=== PATIENT | female | born 1955 | race Caucasian/White ===

== ENCOUNTER 2018-05-14 22:17 | Observation (INO) | payer OTHER ==
--- NOTE | 2018-05-14 23:09 | ERPHSYRPT ---
- History of Present Illness Time Seen by Provider: 05/14/18 23:07 Source: patient, family Exam Limitations: no limitations Patient Subjective Stated Complaint: pt states she had diarrhea this evening and there was some blood in the stool Triage Nursing Assessment: pt anxious, expresses concern regarding stool, skin warm and dry, skin pale but pink color to her cheeks, no visible hemorrhoids present, bottom appears red Physician History: 62-year-old white female with history of high blood pressure, diabetes, asthma, anemia, anxiety. She arrives with complaint that she drank a lot of tomato juice this afternoon and then she started having diarrhea that she states she noticed blood in her rectum. She states she has pain in the rectal area she denies any abdominal pain she has not been vomiting she has no fevers. Past medical history includes diabetes type 2 asthma, anemia, high blood pressure, anxiety. Past surgical history includes right toes amputated. Social history patient denies tobacco alcohol or illicit drug use. Timing/Duration: today Severity: moderate Modifying Factors: Improves With: nothing Associated Symptoms: other (diarrhea and blood in her stools), No nausea, No vomiting, No abdominal pain, No shortness of breath, No heartburn, No diaphoresis, No cough, No chills, No chest pain, No fever, No headaches, No loss of appetite, No rash, No syncope, No seizure, No weakness Allergies/Adverse Reactions: Penicillins Allergy (Verified 05/14/18 22:46) Home Medications: Alprazolam 0.25 mg [xanAX 0.25 MG] 0.25 mg PO DAILY PRN 05/14/18 [History] Amlodipine Besylate 10 mg [Norvasc 10 MG] 10 mg PO DAILY 05/14/18 [History] Aspirin EC 81 mg [Ecotrin 81 mg] 81 mg PO DAILY 05/14/18 [History] Carvedilol 6.25 mg [Coreg 6.25 MG] 6.25 mg PO BID 05/14/18 [History] Enalapril Maleate 20 mg PO BID 05/14/18 [History] Hydrochlorothiazide 12.5 mg PO DAILY 05/14/18 [History] Metformin HCl 500 mg [Glucophage 500 MG] 500 mg PO BID 05/14/18 [History] Pravastatin Sodium 20 mg PO DAILY 05/14/18 [History] - Review of Systems Constitutional: No Fever, No Chills Eyes: No Symptoms Ears, Nose, & Throat: No Symptoms Respiratory: No Cough, No Dyspnea Cardiac: No Chest Pain, No Edema, No Syncope Abdominal/Gastrointestinal: Diarrhea, Hematochezia, No Abdominal Pain, No Nausea , No Vomiting, No Hematemesis, No Melena, No Dysphagia, No Appetite Changes Genitourinary Symptoms: No Dysuria Musculoskeletal: No Back Pain, No Neck Pain Skin: No Rash Neurological: No Dizziness, No Focal Weakness, No Sensory Changes Psychological: No Symptoms Endocrine: No Symptoms All Other Systems: Reviewed and Negative - Past Medical History Pertinent Past Medical History: Yes Cardiac History: High Cholesterol, Hypertension, Other Respiratory History: Asthma Endocrine Medical History: Diabetes Type II Other Medical History: anemic - Past Surgical History Past Surgical History: Yes Musculoskeletal: Amputation Other Surgical History: toes removed on right foot - Social History Smoking Status: Never smoker Exposure to second hand smoke: No Drug Use: none - Female History Hx Now: No - Nursing Vital Signs Nursing Vital Signs: Initial Vital Signs Temperature 97.9 F 05/14/18 22:33 Pulse Rate 83 05/14/18 22:33 Respiratory Rate 18 05/14/18 22:33 Blood Pressure 153/65 05/14/18 22:33 O2 Sat by Pulse Oximetry 99 05/14/18 22:33 Pain Scale Pain Intensity 4 - Physical Exam General Appearance: no apparent distress, alert Eye Exam: PERRL/EOMI, eyes nml inspection Ears, Nose, Throat Exam: normal ENT inspection, TMs normal, pharynx normal, moist mucous membranes Neck Exam: normal inspection, non-tender, supple, full range of motion Respiratory Exam: normal breath sounds, lungs clear, No respiratory distress Cardiovascular Exam: regular rate/rhythm, normal heart sounds, normal peripheral pulses Gastrointestinal/Abdomen Exam: soft, normal bowel sounds, No tenderness, No mass Back Exam: normal inspection, normal range of motion, No CVA tenderness, No vertebral tenderness Extremity Exam: normal inspection, normal range of motion, pelvis stable Neurologic Exam: alert, oriented x 3, cooperative, 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, normal mood/affect, nml cerebellar function, nml station & gait, sensation nml, No motor deficits Skin Exam: normal color, warm, dry, No rash SpO2 Interpretation: normal (99%) SpO2: 99 Oxygen Delivery: Room Air - Course Nursing assessment & vital signs reviewed: Yes Ordered Tests: Active Orders 24 hr Category Date Time Status IV Insertion STAT Care 05/14/18 23:05 Active IV Insertion-2nd Peripheral STAT Care 05/15/18 00:08 Active Orthostatic Vital Signs STAT Care 05/14/18 23:06 Active CBC W DIFF Stat Lab 05/14/18 23:17 Completed CMP Stat Lab 05/14/18 23:17 Completed Occult Blood,Stool Other Stat Lab 05/14/18 00:05 Completed PROTIME WITH INR Stat Lab 05/14/18 23:17 Completed PTT Stat Lab 05/14/18 23:17 Completed Medication Summary Generic Name Dose Route Start Last Admin Trade Name Freq PRN Reason Stop Dose Admin Sodium Chloride 1,000 mls @ 100 mls/hr 05/15/18 00:15 05/15/18 00:31 Sodium Chloride 0.9% 1000 Ml IV 06/14/18 00:14 100 mls/hr .Q10H KESHAV Administration Pantoprazole Sodium 40 mg 05/15/18 00:33 Protonix 40 Mg Iv IV 05/15/18 00:34 STAT ONE Lab/Rad Data: Laboratory Result Diagrams 05/14/18 23:17 05/14/18 23:17 Laboratory Results 05/14/18 05/14/18 05/14/18 Range/Units 23:17 23:17 23:17 WBC 13.4 H (4.0-10.5) K/mm3 RBC 3.33 L (4.1-5.4) M/mm3 Hgb 10.1 L (12.0-16.0) gm/dl Hct 27.9 L (35-47) % MCV 83.8 (78-100) fl MCH 30.3 (26-32) pg MCHC 36.2 H (32-36) g/dl RDW 12.1 (11.5-14.0) % Plt Count 229 (150-450) K/mm3 MPV 9.5 (6-9.5) fl Gran % 83.2 H (36.0-66.0) % Eos # (Auto) 0.13 (0-0.5) Absolute Lymphs (auto) 1.11 (1.0-4.6) Absolute Monos (auto) 0.99 (0.0-1.3) Lymphocytes % 8.3 L (24.0-44.0) % Monocytes % 7.4 (0.0-12.0) % Eosinophils % 1.0 (0.00-5.0) % Basophils % 0.1 (0.0-0.4) % Absolute Granulocytes 11.17 H (1.4-6.9) Basophils # 0.02 (0-0.4) PT 10.7 (9.95-12.35) SECONDS INR 0.92 (0.8-3.0) APTT 29.0 (25.3-37.0) SECONDS Sodium 117 L* (137-145) mmol/L Potassium 3.2 L (3.5-5.1) mmol/L Chloride 80 L (98-107) mmol/L Carbon Dioxide 25 (22-30) mmol/L Anion Gap 15.5 H (5-15) MEQ/L BUN 27 H (7-17) mg/dL Creatinine 1.27 H (0.52-1.04) mg/dL Estimated GFR 45.2 ML/MIN Glucose 219 H (74-106) mg/dL Calcium 9.6 (8.4-10.2) mg/dL Total Bilirubin 0.40 (0.2-1.3) mg/dL AST 33 (14-36) U/L ALT 24 (0-35) U/L Alkaline Phosphatase 128 H (38-126) U/L Serum Total Protein 7.9 (6.3-8.2) g/dL Albumin 4.6 (3.5-5.0) g/dL Stool Occult Blood (Negative) 05/14/18 Range/Units 00:05 WBC (4.0-10.5) K/mm3 RBC (4.1-5.4) M/mm3 Hgb (12.0-16.0) gm/dl Hct (35-47) % MCV (78-100) fl MCH (26-32) pg MCHC (32-36) g/dl RDW (11.5-14.0) % Plt Count (150-450) K/mm3 MPV (6-9.5) fl Gran % (36.0-66.0) % Eos # (Auto) (0-0.5) Absolute Lymphs (auto) (1.0-4.6) Absolute Monos (auto) (0.0-1.3) Lymphocytes % (24.0-44.0) % Monocytes % (0.0-12.0) % Eosinophils % (0.00-5.0) % Basophils % (0.0-0.4) % Absolute Granulocytes (1.4-6.9) Basophils # (0-0.4) PT (9.95-12.35) SECONDS INR (0.8-3.0) APTT (25.3-37.0) SECONDS Sodium (137-145) mmol/L Potassium (3.5-5.1) mmol/L Chloride (98-107) mmol/L Carbon Dioxide (22-30) mmol/L Anion Gap (5-15) MEQ/L BUN (7-17) mg/dL Creatinine (0.52-1.04) mg/dL Estimated GFR ML/MIN Glucose (74-106) mg/dL Calcium (8.4-10.2) mg/dL Total Bilirubin (0.2-1.3) mg/dL AST (14-36) U/L ALT (0-35) U/L Alkaline Phosphatase (38-126) U/L Serum Total Protein (6.3-8.2) g/dL Albumin (3.5-5.0) g/dL Stool Occult Blood POSITIVE (Negative) - Progress Progress: improved Progress Note: 05/15/18 00:33 62-year-old white female with history of diabetes arthritis anemia anxiety high blood pressure She arrives with complaint of blood in her stool since this evening she states she drank a bunch of tomato juice she began to have rectal bleeding later this afternoon. She denies any abdominal pain. She does have blood with rectal examination. She has no vomiting. Patient's orthostatic vital signs are stable hemoglobin is 10.1 hematocrit is 27.9 platelets 229 Patient was noted to have a low sodium of 117 a low potassium of 3.2 and 9 gap was 15.5 BUN and creatinine are 27 1.27 I have started the patient on IV normal saline 100 mL per hour we'll change this IV normal saline with 20 mEq of potassium chloride at 100 milliliters per hour, will place patient on telemetry. Will give patient Protonix 40 mg IV. Plan to place on observation with repeat CBC CMP in the morning. Impression 1 rectal bleeding. 2 hyponatremia. 3 hypokalemia. . - Departure Time of Disposition: 00:35 Departure Disposition: Observation Clinical Impression: Rectal bleeding, Hyponatremia, Hypokalemia Condition: Fair Critical Care Time: No Referrals: CALDERON MORENO MD [Primary Care Provider] -
[2018-05-14 23:21] LABS: BASOPHIL % 0.1 % (0.0-0.4); Basophil (Absolute #) 0.02 (0-0.4); Eosinophil (Absolute #) 0.13 (0-0.5); Granulocyte Absolute (ANC) 11.17 (1.4-6.9); Granulocytes % 83.2 % (36.0-66.0); Hematocrit 27.9 % (35-47); Hemoglobin 10.1 gm/dl (12.0-16.0); Lymphocyte (Absolute #) 1.11 (1.0-4.6); Lymphocytes % 8.3 % (24.0-44.0); Mean Cell Volume 83.8 fl (78-100); Mean Corpuscular Hemoglobin 30.3 pg (26-32); Mean Corpuscular Hgb Concent. 36.2 g/dl (32-36); Mean Platelet Volume 9.5 fl (6-9.5); Monocyte (Absolute #) 0.99 (0.0-1.3); Monocytes % 7.4 % (0.0-12.0); Platelet Count 229 K/mm3 (150-450); Red Blood Count 3.33 M/mm3 (4.1-5.4); Red Cell Distribution Width 12.1 % (11.5-14.0); White Blood Count 13.4 K/mm3 (4.0-10.5)
[2018-05-14 23:37] LABS: INR 0.92 (0.8-3.0)
[2018-05-14 23:38] LABS: ALBUMIN 4.6 g/dL (3.5-5.0); ANION GAP 15.5 MEQ/L (5-15); BILIRUBIN,TOTAL 0.4 mg/dL (0.2-1.3); Calcium 9.6 mg/dL (8.4-10.2); Creatinine 1 1.27 mg/dL (0.52-1.04); Potassium 3.2 mmol/L (3.5-5.1); Total Protein 7.9 g/dL (6.3-8.2)
[2018-05-15] MEDS ORDERED: Sodium Chloride 0.9% 1000 ML 1,000 ML IV SCH (00:15)
[2018-05-15] MEDS ORDERED: Sodium Chloride 0.9% 1000 ML 1,000 ML ONE (00:22)
[2018-05-15] MEDS ORDERED: PROTONIX 40 MG IV IV ONE ×2 (00:33→00:36)
[2018-05-15] MEDS ORDERED: DIPRIVAN 200 MG/20 ML IV ONE (01:05)
[2018-05-15] MEDS ORDERED: Ketamine HCl 50 MG/ML IJ ONE (01:05)
[2018-05-15 01:06] LABS: ABO TYPING O; Antibody Screen NEGATIVE (NEGATIVE); RH TYPING POSITIVE
[2018-05-15] MEDS ORDERED: NovoLOG Insulin SQ PRN (01:08)
[2018-05-15] MEDS ORDERED: Sodium Chloride 0.9% W/ 20 mEq KCl/LITER 1,000 ML IV SCH (01:08)
[2018-05-15] MEDS: Sodium Chloride 0.9% W/ 20 mEq KCl/LITER 1,000 ML IV SCH ×2 (03:41→13:27)
[2018-05-15 06:09] LABS: BASOPHIL % 0.1 % (0.0-0.4); Basophil (Absolute #) 0.01 (0-0.4); Eosinophil % 1.1 % (0.00-5.0); Eosinophil (Absolute #) 0.12 (0-0.5); Granulocyte Absolute (ANC) 8.22 (1.4-6.9); Granulocytes % 78.6 % (36.0-66.0); Hemoglobin 9.3 gm/dl (12.0-16.0); Lymphocyte (Absolute #) 1.17 (1.0-4.6); Lymphocytes % 11.2 % (24.0-44.0); Mean Cell Volume 84.4 fl (78-100); Mean Corpuscular Hgb Concent. 35.8 g/dl (32-36); Mean Platelet Volume 9.9 fl (6-9.5); Monocyte (Absolute #) 0.94 (0.0-1.3); Platelet Count 204 K/mm3 (150-450); Red Blood Count 3.08 M/mm3 (4.1-5.4); White Blood Count 10.5 K/mm3 (4.0-10.5)
[2018-05-15 06:26] LABS: ALBUMIN 4.1 g/dL (3.5-5.0); ANION GAP 12.7 MEQ/L (5-15); BILIRUBIN,TOTAL 0.4 mg/dL (0.2-1.3); Calcium 9.3 mg/dL (8.4-10.2); Creatinine 1 1.16 mg/dL (0.52-1.04); Potassium 3.5 mmol/L (3.5-5.1)
[2018-05-15 06:29] LABS: Mean Corpuscular Hemoglobin 30.1 pg (26-32)
[2018-05-15] MEDS: PROTONIX 40 MG IV IV SCH (09:50)
[2018-05-15] MEDS ORDERED: NON-FORMULARY ITEM (Pravastatin Sodium [Pravastatin Sodium] 20 MG) PO SCH (10:00)
[2018-05-15] MEDS ORDERED: Glucophage 500 MG PO SCH (10:00)
[2018-05-15] MEDS ORDERED: ENALAPRIL MALEATE 20 MG PO SCH (10:00)
[2018-05-15] MEDS: hydroDIURIL 25 MG PO SCH (10:35)
[2018-05-15] MEDS: Coreg 6.25 MG PO SCH ×2 (10:36→22:10)
[2018-05-15] MEDS: NORVASC 5 MG PO SCH (10:36)
[2018-05-15] MEDS: Bactroban OINTMENT TOP SCH ×2 (10:37→22:09)
[2018-05-15] MEDS: HOLD METFORMIN PRODUCTS FOR 48 HOURS MC SCH (16:28)
[2018-05-15] MEDS: FLAGYL 500 MG IVPB 500 MG/100 ML BAG IV SCH ×2 (16:32→22:10)
[2018-05-15] MEDS: Levofloxacin 500MG/100ML D5W 500 MG/100 ML BAG IV SCH (16:32)
--- NOTE | 2018-05-15 21:23 | XRAY ---
Indication: Occult blood. Abdominal pain and diarrhea. Multiple contiguous axial images obtained through the abdomen and pelvis using enteric contrast only as ordered. Comparison: None. Lung bases are clear. Heart is not enlarged. Small hiatal hernia. Contrasted stomach and bowel loops appear nonobstructed. Descending and mid to proximal sigmoid colon demonstrates mild pericolonic stranding favoring colitis. Tiny left colic free fluid. No walled off fluid collection or free air. Previous cholecystectomy. Nonobstructing bilateral renal micro-calculi. Remaining liver, pancreas, spleen, Ya glands, kidneys, ureters, bladder, and uterus appear unremarkable for noncontrast exam. Moderate aortoiliac calcifications without AAA. Osseous structures intact with mild multilevel degenerative spondylosis including 1-2 mm L4 spondylolisthesis. No ventral or inguinal hernias. Impression: 1. Descending and sigmoid colitis as detailed. Tiny free fluid but no walled off fluid collection or perforation. 2. Nonobstructing bilateral renal micro-calculi and small hiatal hernia. 3. Mild multilevel degenerative spondylosis including L4 grade 1 spondylolisthesis. Impression: Stable normal CT head without contrast exam. Comment: Preliminary interpretation was made by [facility]. No critical discrepancy. CTDI 16.80
[2018-05-15] MEDS: Vasotec 10 MG PO SCH (22:10)
[2018-05-15] MEDS: ZOCOR 20MG PO SCH (22:10)
[2018-05-16] MEDS: Sodium Chloride 0.9% W/ 20 mEq KCl/LITER 1,000 ML IV SCH ×2 (02:10→14:54)
[2018-05-16 06:15] LABS: Hematocrit 23.1 % (35-47); Mean Cell Volume 87.2 fl (78-100); Mean Corpuscular Hgb Concent. 34.6 g/dl (32-36); Mean Platelet Volume 10.1 fl (6-9.5); Platelet Count 178 K/mm3 (150-450); Red Blood Count 2.65 M/mm3 (4.1-5.4); Red Cell Distribution Width 12.2 % (11.5-14.0); White Blood Count 9.7 K/mm3 (4.0-10.5)
[2018-05-16 06:26] LABS: ANION GAP 10.6 MEQ/L (5-15); Calcium 8.4 mg/dL (8.4-10.2); Potassium 3.9 mmol/L (3.5-5.1)
[2018-05-16 06:35] LABS: Mean Corpuscular Hemoglobin 30.1 pg (26-32)
[2018-05-16] MEDS: Coreg 6.25 MG PO SCH ×2 (10:26→22:34)
[2018-05-16] MEDS: PROTONIX 40 MG IV IV SCH (10:26)
[2018-05-16] MEDS: Vasotec 10 MG PO SCH ×2 (10:26→22:33)
[2018-05-16] MEDS: NORVASC 5 MG PO SCH (10:26)
[2018-05-16] MEDS: hydroDIURIL 25 MG PO SCH (10:26)
[2018-05-16] MEDS: HOLD METFORMIN PRODUCTS FOR 48 HOURS MC SCH (10:27)
[2018-05-16] MEDS: FLAGYL 500 MG IVPB 500 MG/100 ML BAG IV SCH ×3 (10:28→22:33)
[2018-05-16] MEDS: Bactroban OINTMENT TOP SCH ×2 (10:28→22:34)
[2018-05-16] MEDS: Levofloxacin 500MG/100ML D5W 500 MG/100 ML BAG IV SCH (11:28)
[2018-05-16] MEDS ORDERED: Golytely Solution 4000 ML PO ONE (14:00)
[2018-05-16 14:26] LABS: 027 TOX PROD PRESUMPTIVE NEGATIVE (NEGATIVE); TOXIGENIC C. DIFF ORG NEGATIVE (NEGATIVE)
[2018-05-16] MEDS: ZOCOR 20MG PO SCH (22:34)
[2018-05-17] MEDS: Sodium Chloride 0.9% W/ 20 mEq KCl/LITER 1,000 ML IV SCH ×2 (01:48→13:27)
[2018-05-17 05:48] LABS: AMYLASE 50 U/L (30-110); LIPASE 105 U/L (23-300)
[2018-05-17 05:49] LABS: ANION GAP 11.7 MEQ/L (5-15); BLOOD UREA NITROGEN 9 mg/dL (7-17); CHLORIDE 98 mmol/L (98-107); Calcium 8.6 mg/dL (8.4-10.2); Carbon Dioxide 26 mmol/L (22-30); Creatinine 1 0.91 mg/dL (0.52-1.04); Glucose 108 mg/dL (74-106); Hematocrit 24.4 % (35-47); Hemoglobin 8.3 gm/dl (12.0-16.0); Mean Cell Volume 87.8 fl (78-100); Mean Platelet Volume 9.9 fl (6-9.5); Platelet Count 192 K/mm3 (150-450); Potassium 4.5 mmol/L (3.5-5.1); Red Blood Count 2.78 M/mm3 (4.1-5.4); Red Cell Distribution Width 12.4 % (11.5-14.0); SODIUM 132 mmol/L (137-145)
[2018-05-17 05:54] LABS: Mean Corpuscular Hemoglobin 29.8 pg (26-32)
--- NOTE | 2018-05-17 08:18 | PCM.NOTE ---
Date and Time: 05/17/18 0814 Subjective Assessment: patient denies any bleeding with bowel prep, denies pain. Objective Exam General Appearance: no apparent distress, alert Skin Exam: normal color, warm, dry Respiratory Exam: normal breath sounds, lungs clear, No respiratory distress Cardiovascular Exam: regular rate/rhythm, normal heart sounds Gastrointestinal/Abdomen Exam: soft, No tenderness, No mass Extremity Exam: normal inspection, normal range of motion OBJECTIVE DATA Vital Signs: Vital Signs - 24 hr Temp Pulse Resp BP Pulse Ox 05/17/18 06:41 98.5 F 73 16 127/61 99 05/17/18 04:05 97.7 F 76 16 131/57 98 05/17/18 02:00 98 05/17/18 00:06 97.5 F 74 20 117/58 98 05/16/18 20:10 98.7 F 73 18 140/65 100 05/16/18 16:00 97.4 F 70 18 132/59 100 05/16/18 12:00 98.2 F 72 18 120/72 97 Pain Assessment - Last Documented Pain Intensity 0 Pain Scale Used [facility] Intake and Output: Intake & Output 05/14/18 05/15/18 05/16/18 05/17/18 11:59 11:59 11:59 11:59 Intake Total 1030 2632 6559 Output Total 2300 1450 Balance 1642 881 9512 Weight 66.5 kg 70.6 kg Lab Results: Accuchecks Date 05/16/18 Date 05/16/18 Time 16:30 Time 11:30 Accucheck Value: 116 Accucheck Value: 128 Accucheck Value: 141 Lab Results-Last 24 Hours 05/15/18 05/17/18 05/17/18 Range/Units 13:11 05:10 05:10 WBC 8.0 (4.0-10.5) K/mm3 RBC 2.78 L (4.1-5.4) M/mm3 Hgb 8.3 L (12.0-16.0) gm/dl Hct 24.4 L (35-47) % MCV 87.8 (78-100) fl MCH 29.8 (26-32) pg MCHC 34.0 (32-36) g/dl RDW 12.4 (11.5-14.0) % Plt Count 192 (150-450) K/mm3 MPV 9.9 H (6-9.5) fl Sodium 132 L (137-145) mmol/L Potassium 4.5 (3.5-5.1) mmol/L Chloride 98 (98-107) mmol/L Carbon Dioxide 26 (22-30) mmol/L Anion Gap 11.7 (5-15) MEQ/L BUN 9 (7-17) mg/dL Creatinine 0.91 (0.52-1.04) mg/dL Estimated GFR > 60.0 ML/MIN Glucose 108 H (74-106) mg/dL Calcium 8.6 (8.4-10.2) mg/dL Amylase (30-110) U/L Lipase (23-300) U/L Stl C. diff Tox B Gene NEGATIVE (NEGATIVE) C.difficile 027-NAP1-B1 PRESUMPTIVE NEGATIVE (NEGATIVE) 05/17/18 Range/Units 05:10 WBC (4.0-10.5) K/mm3 RBC (4.1-5.4) M/mm3 Hgb (12.0-16.0) gm/dl Hct (35-47) % MCV (78-100) fl MCH (26-32) pg MCHC (32-36) g/dl RDW (11.5-14.0) % Plt Count (150-450) K/mm3 MPV (6-9.5) fl Sodium (137-145) mmol/L Potassium (3.5-5.1) mmol/L Chloride (98-107) mmol/L Carbon Dioxide (22-30) mmol/L Anion Gap (5-15) MEQ/L BUN (7-17) mg/dL Creatinine (0.52-1.04) mg/dL Estimated GFR ML/MIN Glucose (74-106) mg/dL Calcium (8.4-10.2) mg/dL Amylase 50 (30-110) U/L Lipase 105 (23-300) U/L Stl C. diff Tox B Gene (NEGATIVE) C.difficile 027-NAP1-B1 (NEGATIVE) Radiology Exams: Radiology Procedures Category Date Time Status ABDOMEN AND PELVIS W/0 CONTRAS [CT] Routine Exams 05/15/18 13:57 Completed Assessment/Plan (1) Colitis Current Visit: Yes Status: Acute Assessment & Plan: on levaquin and flagyl, to have colonoscopy today with surgery. h/h stable with no further blood loss at this time. Code(s): K52.9 - NONINFECTIVE GASTROENTERITIS AND COLITIS, UNSPECIFIED (2) Rectal bleeding Current Visit: Yes Status: Acute Assessment & Plan: no further bleeding at this time Code(s): K62.5 - HEMORRHAGE OF ANUS AND RECTUM (3) Hypokalemia Current Visit: Yes Status: Acute Code(s): E87.6 - HYPOKALEMIA (4) Hyponatremia Current Visit: Yes Status: Acute Code(s): E87.1 - HYPO-OSMOLALITY AND HYPONATREMIA
[2018-05-17] MEDS: Bactroban OINTMENT TOP SCH ×2 (09:47→20:55)
[2018-05-17] MEDS: Coreg 6.25 MG PO SCH ×2 (09:48→20:56)
[2018-05-17] MEDS: FLAGYL 500 MG IVPB 500 MG/100 ML BAG IV SCH ×3 (09:48→20:56)
[2018-05-17] MEDS: hydroDIURIL 25 MG PO SCH (09:48)
[2018-05-17] MEDS: NORVASC 5 MG PO SCH (09:49)
[2018-05-17] MEDS: PROTONIX 40 MG IV IV SCH (09:50)
[2018-05-17] MEDS: Vasotec 10 MG PO SCH ×2 (09:50→20:57)
[2018-05-17] MEDS: HOLD METFORMIN PRODUCTS FOR 48 HOURS MC SCH (10:40)
[2018-05-17] MEDS: Levofloxacin 500MG/100ML D5W 500 MG/100 ML BAG IV SCH (10:56)
--- NOTE | 2018-05-17 11:16 | HP ---
CHIEF COMPLAINT: Rectal bleeding, diarrhea. HISTORY OF PRESENT ILLNESS: The patient is a 62 year-old white female who presented to the emergency room with complaints of having blood in the stool. The patient had reported that she had a little diarrhea and had been to the bathroom a couple of times. She reports that she had noticed some bright red bleeding per rectum and was quite concerned and presented herself to the emergency room for evaluation and management. PAST MEDICAL HISTORY: The patient is a poor historian with her past medical history. She reports that she does see Dr. Melchor and last saw him approximately six months ago. She apparently missed an appointment as she was describing it to me due to time change back in the winter. Diabetes mellitus type 2. She also has hypertension. PAST SURGICAL HISTORY: Apparently she had some surgery on her feet with amputation being done due to her diabetes. The patient denies any other surgeries. When asked she specifically denies having had colonoscopy in the past and does not want one done. HOME MEDICATIONS: Alprazolam 0.25 mg PRN, Norvasc 10 mg a day, aspirin 81 mg a day, carvedilol 6.25 mg b.i.d., Enalapril 20 mg b.i.d., hydrochlorothiazide 12.5 mg a day, Metformin 500 mg b.i.d., Pravastatin 20 mg a day. ALLERGIES: PENICILLIN. PHYSICAL EXAMINATION: VITAL SIGNS: On admission showed temperature 97.9F, pulse 83, respiratory rate 18, blood pressure 153/65. O2 saturation 99% on room air. HEENT: Normocephalic, atraumatic. Pupils equal round reactive to light. Extraocular movements intact. Oropharynx is dry. NECK: Supple without lymphadenopathy, thyromegaly or JVD. CHEST: Clear to auscultation with good air movement bilaterally. HEART: Regular rate and rhythm without significant murmurs, rubs or gallops heard. ABDOMEN: Soft. No palpable masses were felt. There is no guarding or rebound. Digital exam by the emergency room doctor did show some blood on the examining finger. The nurses have reported some streaks of blood in the stool earlier this morning. EXTREMITIES: Without clubbing, cyanosis or edema. NEUROLOGIC: She appears to be alert and oriented x3 with no focal deficits noted. LAB DATA AND TESTS: The patient's laboratory studies thus far have shown white blood cell count 15,400, hemoglobin 10.1, PLT 229,000. She did have occult blood testing of stool which was positive. Her international normalized ratio is 0.92. Metabolic panel showed nonfasting sugar at 219, BUN 27, creatinine 1.27. Sodium was noted to be low at 117, potassium 3.2. Liver enzymes were normal. She was O-positive on blood type. ASSESSMENT: At this time the patient declines to have endoscopic evaluation. She did not have CT scan in the emergency room. We will therefore proceed with this to see if we can see any intra-abdominal mass that might be explaining the blood loss. She does not appear to be actively bleeding. With IV hydration her hemoglobin dropped from 10.1 to 9.3. We have given her saline for hyponatremia and potassium as well. Thus far it has risen to 122 from 117. We will fluid restrict and recheck the electrolytes in the morning and further evaluation pending results of CT scan and being able to get the patient to agree to doing endoscopic evaluation.
--- NOTE | 2018-05-17 12:48 | CONS ---
CONSULT DATE: 05/15/2018 HISTORY: This is a 62 year-old female who presented to the hospital due to blood in her bowel movement. She states that at home she started having some bright red blood in her stool after she had tomato soup. PAST MEDICAL HISTORY: Hypertension, hyperlipidemia, asthma, diabetes, anemia, orthopedic procedure, gallbladder surgery. MEDICATIONS: Alprazolam, amlodipine, aspirin, carvedilol, Enalapril, hydrochlorothiazide, Metformin, statin. ALLERGIES: PENICILLIN. Allergies reviewed. PHYSICAL EXAMINATION: GENERAL: No acute distress. CVS: Regular rate and rhythm. PULMONARY: Nonlabored. ABDOMEN: Soft. Nontender, nondistended. EXTREMITIES: Normal. LAB DATA AND TESTS: White blood cell count is 10.5 and it was 13.4 yesterday. Hemoglobin 9.3 and it was 10.1 yesterday. PLT count 204,000. Creatinine improved at 1.16. International normalized ratio 0.92. Positive fecal occult blood test. CT scan shows colitis from the splenic flexure to the sigmoid. ASSESSMENT AND PLAN: This is a 62 year-old female appears to have colitis. My suspicion is ischemic colitis. She has not had any diarrhea or other symptoms to suggest an infectious etiology per her. However, we are going to obtain stool cultures and Clostridium difficile to rule this out as he did have a mildly elevated white blood cell count on her arrival so this could still be infectious colitis although my suspicion is slightly higher with regards to ischemic colitis. She has had some continued bleeding while wiping this has been bright blood. She does not report any dark blood. She said the stool does not look like melena. We will follow her CBC and monitor her hemoglobin as well as her white blood cell count. She is on antibiotics including Levaquin and Flagyl which we will continue due to the possibility of infectious colitis. The patient will need a colonoscopy. We will determine the planning for the colonoscopy based on the patient's labs and clinical status as she improves.
[2018-05-17] MEDS ORDERED: Lactated Ringers 1,000 ML IV ONE (15:30)
[2018-05-17] MEDS: Glucophage 500 MG PO SCH (16:53)
[2018-05-17] MEDS ORDERED: Lactated Ringers 1,000 ML IV SCH (17:00)
[2018-05-17] MEDS: ZOCOR 20MG PO SCH (20:57)
[2018-05-18] MEDS: Sodium Chloride 0.9% W/ 20 mEq KCl/LITER 1,000 ML IV SCH (01:52)
[2018-05-18] MEDS: xanAX 0.25 MG PO PRN ×2 (01:53→09:54)
[2018-05-18 05:42] LABS: BASOPHIL % 0.4 % (0.0-0.4); Basophil (Absolute #) 0.03 (0-0.4); Eosinophil % 2.1 % (0.00-5.0); Eosinophil (Absolute #) 0.15 (0-0.5); Granulocyte Absolute (ANC) 4.49 (1.4-6.9); Granulocytes % 63.7 % (36.0-66.0); Hematocrit 24.6 % (35-47); Hemoglobin 8.5 gm/dl (12.0-16.0); Lymphocyte (Absolute #) 1.72 (1.0-4.6); Lymphocytes % 24.4 % (24.0-44.0); Mean Cell Volume 88.8 fl (78-100); Mean Corpuscular Hgb Concent. 34.6 g/dl (32-36); Mean Platelet Volume 9.9 fl (6-9.5); Monocyte (Absolute #) 0.66 (0.0-1.3); Monocytes % 9.4 % (0.0-12.0); Platelet Count 186 K/mm3 (150-450); Red Blood Count 2.77 M/mm3 (4.1-5.4); Red Cell Distribution Width 12.2 % (11.5-14.0); White Blood Count 7.1 K/mm3 (4.0-10.5)
[2018-05-18 05:47] LABS: Mean Corpuscular Hemoglobin 30.6 pg (26-32)
[2018-05-18 06:12] LABS: ALBUMIN 3.4 g/dL (3.5-5.0); ALKALINE PHOSPHATASE 61 U/L (38-126); ANION GAP 12.1 MEQ/L (5-15); BLOOD UREA NITROGEN 7 mg/dL (7-17); CHLORIDE 99 mmol/L (98-107); Calcium 8.5 mg/dL (8.4-10.2); Carbon Dioxide 24 mmol/L (22-30); Creatinine 1 0.89 mg/dL (0.52-1.04); Glucose 97 mg/dL (74-106); Potassium 4.1 mmol/L (3.5-5.1); SGOT/AST 32 U/L (14-36); SGPT/ALT 17 U/L (0-35); SODIUM 131 mmol/L (137-145); Total Protein 6.3 g/dL (6.3-8.2)
[2018-05-18] MEDS: Glucophage 500 MG PO SCH (07:58)
--- NOTE | 2018-05-18 08:43 | PCM.DS ---
Discharge Summary Date of Admission: 05/15/18 01:04 Admitting Physician: CALDERON MORENO Consults: Consults on Case 05/15/18 15:59 Consult Surgery ROUTINE Primary Care Provider: CALDERON MORENO Allergies Allergies Penicillins Allergy (Verified 05/15/18 01:58) [facility] Summary - Hospital Course Hospital Course: Pt admitted over the weekend with anemia, rectal bleeding, and colitis. Placed on levaquin and flagyl IV and surgery consulted. Colonoscopy was done yesterday by Dr. Munguia; reportedly pt has a hiatal hernia and hemorrhoids ( although colon prep was poor). She is tolerating CLD but would very much like to eat more. Her hgb is stable at 8.5. Will d/c home if tolerates a bland diet for breakfast. Home on po antibiotics and f/u with Dr. Moreno next week. - Vitals & Intake/Output Vital Signs: Vital Signs Temperature 98.2 F 05/18/18 07:22 Pulse Rate 72 05/18/18 07:22 Respiratory Rate 16 05/18/18 07:22 Blood Pressure 122/58 05/18/18 07:22 O2 Sat by Pulse Oximetry 94 L 05/18/18 07:22 Intake & Output: Intake & Output 05/15/18 05/16/18 05/17/18 05/18/18 11:59 11:59 11:59 11:59 Intake Total 1030 2632 6559 3065 Output Total 2300 1750 3400 Balance 6268 737 1149 -335 Weight 66.5 kg 70.6 kg 68.3 kg - Lab Result Diagrams: 05/18/18 05:14 05/18/18 05:14 Lab Results-Last 24 Hrs: Accuchecks Date 05/17/18 Date 05/17/18 Time 22:00 Time 12:00 Accucheck Value: 155 Accucheck Value: 126 Accucheck Value: 132 Lab Results-Last 24 Hours 05/18/18 05/18/18 Range/Units 05:14 05:14 WBC 7.1 (4.0-10.5) K/mm3 RBC 2.77 L (4.1-5.4) M/mm3 Hgb 8.5 L (12.0-16.0) gm/dl Hct 24.6 L (35-47) % MCV 88.8 (78-100) fl MCH 30.6 (26-32) pg MCHC 34.6 (32-36) g/dl RDW 12.2 (11.5-14.0) % Plt Count 186 (150-450) K/mm3 MPV 9.9 H (6-9.5) fl Gran % 63.7 (36.0-66.0) % Eos # (Auto) 0.15 (0-0.5) Absolute Lymphs (auto) 1.72 (1.0-4.6) Absolute Monos (auto) 0.66 (0.0-1.3) Lymphocytes % 24.4 (24.0-44.0) % Monocytes % 9.4 (0.0-12.0) % Eosinophils % 2.1 (0.00-5.0) % Basophils % 0.4 (0.0-0.4) % Absolute Granulocytes 4.49 (1.4-6.9) Basophils # 0.03 (0-0.4) Sodium 131 L (137-145) mmol/L Potassium 4.1 (3.5-5.1) mmol/L Chloride 99 (98-107) mmol/L Carbon Dioxide 24 (22-30) mmol/L Anion Gap 12.1 (5-15) MEQ/L BUN 7 (7-17) mg/dL Creatinine 0.89 (0.52-1.04) mg/dL Estimated GFR > 60.0 ML/MIN Glucose 97 (74-106) mg/dL Calcium 8.5 (8.4-10.2) mg/dL Total Bilirubin 0.30 (0.2-1.3) mg/dL AST 32 (14-36) U/L ALT 17 (0-35) U/L Alkaline Phosphatase 61 (38-126) U/L Serum Total Protein 6.3 (6.3-8.2) g/dL Albumin 3.4 L (3.5-5.0) g/dL Micro Results-Entire Visit: Accuchecks Date 05/17/18 Date 05/17/18 Time 22:00 Time 12:00 Accucheck Value: 155 Accucheck Value: 126 Accucheck Value: 132 Discharge Exam General Appearance: no apparent distress, alert Neurologic Exam: oriented x 3, cooperative Skin Exam: normal color, warm, dry, No rash Respiratory Exam: normal breath sounds, lungs clear, No crackles/rales, No rhonchi, No wheezing Cardiovascular Exam: regular rate/rhythm, normal heart sounds, No murmur Gastrointestinal/Abdomen Exam: soft, normal bowel sounds, No tenderness, No distention, No mass, No guarding, No rebound Extremity Exam: normal inspection, No pedal edema, No swelling Final Diagnosis/Problem List - Final Discharge Diagnosis/Problem (1) Colitis Current Visit: Yes Status: Acute Assessment & Plan: Home on po levaquin and flagyl. F/u with Dr. Moreno in 1 week. (2) Hypokalemia Current Visit: Yes Status: Resolved (3) Hyponatremia Current Visit: Yes Status: Acute Assessment & Plan: improved. (4) Rectal bleeding Current Visit: Yes Status: Acute Assessment & Plan: Watch for any increase in bleeding; come to ER if noted. - Discharge Disposition: Home, Self-Care Condition: Stable Prescriptions: New Metronidazole [Flagyl] 500 mg PO QID #40 tablet Levofloxacin [Levaquin] 500 mg PO DAILY #10 tablet Continue Aspirin EC 81 mg [Ecotrin 81 mg] 81 mg PO DAILY Carvedilol 6.25 mg [Coreg 6.25 MG] 6.25 mg PO BID Amlodipine Besylate 10 mg [Norvasc 10 MG] 10 mg PO DAILY Metformin HCl 500 mg [Glucophage 500 MG] 500 mg PO BID Enalapril Maleate 20 mg PO BID Pravastatin Sodium 20 mg PO DAILY Alprazolam 0.25 mg [xanAX 0.25 MG] 0.25 mg PO DAILY PRN PRN Reason: Anxiety Hydrochlorothiazide 12.5 mg PO DAILY Multivit-Min/Iron/Folic/Lutein [Centrum Silver Women Tablet] 1 tablet PO DAILY Mupirocin [Bactroban OINTMENT] 1 gm TOP BIDPRN PRN PRN Reason: anti-infective Additional Instructions: Come to ER immediately if there is any increase in rectal bleeding or if you are vomiting blood. Come to ER if you are having stools that are dark and tarry. Contact your doctor ESTER if you are nauseated and cannot drink fluids, if you have a fever (temperature over 100.4) or if you can't take your antibiotic for any reason. Antibiotics may cause some diarrhea; if it is severe and watery, contact Dr. Moreno right away. Follow up with: DAKOTA WHITLEY [COURTESY STAFF] - 1 Week
[2018-05-18] MEDS: PROTONIX 40 MG IV IV SCH (09:44)
[2018-05-18] MEDS: hydroDIURIL 25 MG PO SCH (09:48)
--- NOTE | 2018-05-18 09:48 | OP ---
SURGERY DATE/TIME: 05/17/2018 1545 This patient was seen for Dr. Duglas Castelan who was consulted over the weekend. She had some colitis. As I was doing other cases he asked that I proceed with colonoscopy. She had been prepped. PREOPERATIVE DIAGNOSIS: Abdominal pain, question of colitis. POSTOPERATIVE DIAGNOSES: 1) Poor prep limiting the exam. 2) Colitis descending through sigmoid colon. 3) Normal terminal ileum. 4) Few diverticula. 5) Small internal and external hemorrhoids. PROCEDURES: 1) Colonoscopy to terminal ileum. 2) Retrograde ileoscopy. 3) Random cold biopsy of colitis for further evaluation. SURGEON: Dr. Mckinley Hernandez. ANESTHESIA: MAC. ESTIMATED BLOOD LOSS: Minimal. INDICATIONS: As noted above. Risks and benefits explained in detail but not limited to and consent obtained. DESCRIPTION OF PROCEDURE AND FINDINGS: The patient is taken to the operating room. MAC anesthesia introduced. After official time out and no disagreement with planned procedure, digital rectal exam revealed small internal and external hemorrhoids. There were no palpable rectal masses. Video colonoscope inserted and passed up through the poorly prepped colon into the sigmoid through the descending. Definitely noted to have colitis. Appeared to be viable. Scope passed down the transverse colon, ascending colon to cecum. Up into the terminal ileum retrograde ileoscopy is performed which is grossly normal. No signs of any obvious Crohn's disease or inflammatory bowel disease at this point in the terminal ileum. The scope is then carefully withdrawn. Again the prep was poor limiting the exam for small lesions. There were no signs of any large polyps, masses or obstructing lesions. The scope is slowly and carefully withdrawn. Definitely colitis descending through sigmoid colon. Multiple random cold biopsies taken to evaluate for etiology of the colitis whether this had been a transient ischemia or significant vascular disease or infectious source versus inflammatory bowel disease or other etiology. Cold biopsies are taken. Again it appeared to be viable. There is some brief ooze at the biopsy site. It was not felt that there was any surgical intervention necessary due to the liability and recommend continued medical management with antibiotics at this point. Path pending. There was no family available to discuss the findings with.
[2018-05-18] MEDS: NORVASC 5 MG PO SCH (09:52)
[2018-05-18] MEDS: Vasotec 10 MG PO SCH (09:53)
[2018-05-18] MEDS: Coreg 6.25 MG PO SCH (09:55)
[2018-05-18] MEDS: Bactroban OINTMENT TOP SCH (09:56)
[2018-05-18] MEDS: FLAGYL 500 MG IVPB 500 MG/100 ML BAG IV SCH (11:10)
[2018-05-18 11:34] VITALS: BP 156/77; PULSE 83; O2SAT 100
== END 2018-05-18 12:45 | disposition home or self-care (01) ==
LOC: ED 22:17 → MED SURG 05-15 01:04
PROVIDERS: ADMIT Family Medicine; ATTEND Family Medicine
DX: K52.9 Noninfective gastroenteritis and colitis, unspecified (principal); P74.2 Disturbances of sodium balance of newborn; K62.5 Hemorrhage of anus and rectum; Z79.899 Other long term (current) drug therapy; E11.9 Type 2 diabetes mellitus without complications; Z79.4 Long term (current) use of insulin; I10 Essential (primary) hypertension; K57.90 Diverticulosis of intestine, part unspecified, without perforation or abscess without bleeding; K64.4 Residual hemorrhoidal skin tags; E87.6 Hypokalemia; E87.1 Hypo-osmolality and hyponatremia
CPT/HCPCS: 36000; 36415; 74176; 80048; 80053; 82150; 82272; 83036; 83690; 85025; 85027; 85610; 85730; 86850; 86900; 86901; 87045; 87046; 87335; 87493; 93268; 96360; 96374; 99285; J1956; J2704; A9270-GY; G0378

== ENCOUNTER 2023-03-01 09:55 | Emergency (ER) | payer MEDICARE ==
[2023-03-01] MEDS ORDERED: Sodium Chloride 0.9% 1000 ML 1,000 ML ONE ×2 (10:04→12:17)
[2023-03-01] MEDS ORDERED: Zofran 4 MG/2 ML VIAL IV ONE (10:20)
[2023-03-01] MEDS ORDERED: Sodium Chloride 0.9% 1000 ML 1,000 ML IV STA ×2 (10:20→12:15)
[2023-03-01 10:29] LABS: Absolute Neutrophil Ct (ANC) 4.45 x10^3/uL (1.4-6.9); BASOPHIL % 0.3 % (0.0-0.4); Basophil (Absolute #) 0.02 x10^3/uL (0-0.4); Eosinophil % 1.1 % (0.00-5.0); Eosinophil (Absolute #) 0.07 x10^3/uL (0-0.5); Hematocrit 35.8 % (35-47); Hemoglobin 11.7 g/dL (12.0-16.0); IMMATURE GRAN # 0.04 x10^3u/L (0.00-0.03); IMMATURE GRAN % 0.6 % (0.00-0.4); Lymphocyte (Absolute #) 1.53 x10^3/uL (1.0-4.6); Lymphocytes % 23.5 % (24.0-44.0); Mean Cell Volume 85.4 fL (78-100); Mean Corpuscular Hemoglobin 27.9 pg (26-32); Mean Corpuscular Hgb Concent. 32.7 g/dL (32-36); Mean Platelet Volume 9.7 fL (7.5-11.0); Monocytes % 6.1 % (0.0-12.0); Neutrophil % 68.4 % (36.0-66.0); Platelet Count 342 x10^3/uL (150-450); Red Blood Count 4.19 x10^6/uL (4.1-5.4); Red Cell Distribution Width 12.2 % (11.5-14.0); White Blood Count 6.5 x10^3/uL (4.0-10.5)
[2023-03-01 10:43] LABS: BILIRUBIN,TOTAL 0.4 mg/dL (0.2-1.3); Calcium 9.3 mg/dL (8.4-10.2); Creatinine 1 1.34 mg/dL (0.52-1.04); EST GLOMERULAR FILTRATION RATE 41.8 ML/MIN; Potassium 4.9 mmol/L (3.5-5.1); Total Protein 8.3 g/dL (6.3-8.2)
[2023-03-01] MEDS ORDERED: Zofran 4 MG/2 ML VIAL ONE (10:59)
[2023-03-01 11:42] LABS: PROCALCITONIN 0.058 ng/mL (0.030-0.080)
--- NOTE | 2023-03-01 13:05 | XRAY ---
CLINICAL HISTORY:Fall, AMS; COMPARISON:None; TECHNIQUES:CT scan of the brain without contrast administration. Images were acquired in axial cuts with coronal and sagittal reformation; FINDINGS: Multiple bilateral cerebral periventricular and subcortical white matter hypodense areas with no mass effect or perilesional edema, suggestive of chronic white matter ischemia due to small vessel disease. Small pontine focal hypodense areas likely small old infarction. Age-related brain involutional changes are evidenced by the prominent ventricular system, cortical sulci, and extra-axial CSF spaces. Few distinct periventricular and subcortical white matter hypodensity in supra tentorial brain raise the possibility of old lacunar infarctions of various chronological ages, clinical correlation is advised to determine clinical significance. No shift of the midline structures. No evidence of intra or extra axial recent hematoma. Normal appearance of the other posterior fossa structures. Bone window settings showed no evidence of fractures. Advanced atheromatous calcifications of the vertebral and internal carotid arteries. Clear scanned para nasal sinuses, deviated nasal septum with a bony spur to the left side, right middle dani bullosa. IMPRESSION: 1. Bilateral chronic white matter ischemia due to small vessel disease. 2. 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 3. Few old lacunar infarctions supra tentorial brain. 4. No skull fractures or recent intracranial hematoma. Electronically Signed by: Quintin Patel MD. (03/01/2023 11:57:59 FUR COMBER)
--- NOTE | 2023-03-01 13:19 | XRAY ---
CLINICAL HISTORY:Fall, AMS; COMPARISON:None; TECHNIQUES:Thin axial CT of the cervical spine was performed with sagittal and coronal reconstructions without contrast; FINDINGS: Mild cervical spine scoliosis convex to the left side. The vertebral bodies are normal in height. No lytic or sclerotic bone lesion. No definite fractures could be detected. Advanced degenerative changes at the atlantoaxial articulation. Cervical spondylotic changes with marginal osteophytes at the opposing vertebral end plates. Reduced bone density of the examined vertebrae. Level by Level analysis. C2-C3: No central canal or neuroforaminal stenosis. C3-C4: central posterior disc protrusion is seen indenting the anterior subarachnoid space. No significant central canal or neuroforaminal stenosis. Disc bulge measures 2.7 mm. C4-C5: mild posterior disc bulge is seen effacing the anterior subarachnoid space. No significant central canal or neuroforaminal stenosis. C5-C6: central posterior disc protrusion is seen indenting the anterior subarachnoid space. No significant central canal or neuroforaminal stenosis. Disc bulge measures 2.97mm. C6-C7: No central canal or neuroforaminal stenosis. For a better assessment of disc disease dedicated MRI remains the modality of choice if clinically indicated. Advanced vascular atheromatous calcifications. Right thyroid lobe small calcific nodule. IMPRESSION: 1. No definite fractures involving the cervical spine could be detected. 2. Advanced degenerative changes at the atlantoaxial articulation. 3. Cervical spondylotic changes with disc lesions as described. 4. For a better assessment of disc disease dedicated MRI remains the modality of choice if clinically indicated. Electronically Signed by: Quintin Patel MD. (03/01/2023 12:09:11 ANIMAL SHELTER WORKER)
[2023-03-01] MEDS ORDERED: PROTONIX 40 MG IV IV ONE ×2 (13:26→13:31)
[2023-03-01] MEDS ORDERED: PROTONIX 40 MG IV*** 80 MG in Sodium Chloride 0.9% 500 ML 500 ML IV SCH (13:30)
[2023-03-01] MEDS ORDERED: Sodium Chloride 0.9% 1000 ML 1,000 ML IV SCH (13:30)
[2023-03-01 13:31] LABS: Appearance Cloudy (Clear); Bacteria None Seen /HPF (None Seen); Bilirubin Negative (Negative); Blood Trace (Negative); Epithelial Cells None Seen /HPF (None Seen); Glucose, Urine Negative (Negative); Hyaline Casts NONE SEEN /LPF (0-2); Ketones Negative (Negative); Leukocyte Esterase Large (Negative); Nitrite Negative (Negative); Protein,Urine Dip 30 (Negative); RBC 0-2 /HPF (0-5); Specific Gravity <=1.005 (1.005-1.030); Urobilinogen 0.2 mg/dL (0.2); WBC >100 /HPF (0-5)
[2023-03-01 13:32] LABS: ADD URINE CULTURE? ORDERED SEPARATELY (NO)
[2023-03-01 13:42] LABS: INR 0.89 (0.8-3.0); PROTIME 9.8 SECONDS (9.4-12.5); PTT 22.3 SECONDS (25.1-36.5)
[2023-03-01] MEDS ORDERED: Levofloxacin 500MG/100ML D5W 500 MG/100 ML BAG IV STA (13:49)
[2023-03-01] MEDS ORDERED: FLAGYL 500 MG IVPB 500 MG/100 ML BAG IV STA (13:49)
--- NOTE | 2023-03-01 13:54 | ERPHSYRPT ---
- History of Present Illness Time Seen by Provider: 03/01/23 10:18 Source: patient, EMS Exam Limitations: clinical condition Patient Subjective Stated Complaint: PT HERE FOR A POSSIBLE SYNCOPAL EPISODE TODAY WHILE COMING BACK FROM [place]. Triage Nursing Assessment: PT ARRIVED PER AMBULANCE, CONFUSED AND UNCOPPERATIVE, SKIN COOL AND CLAMMY, RESP EASY, ABD SOFT, PT INCONT OF LARGE AMOUNT OF STOOL. HYPSOTENTISIVE, IV STARTED TO RIGHT AC WITH NS W/O. PT CLEANED UP SEVERAL TIMES, C COLLAR IN PLACE Physician History: 67 years old female with history of asthma/COPD, hypertension, hyperlipidemia, diabetes mellitus resident of assisted living is brought in the ER by EMS with questionable history of syncope/collapse and fall with altered mental status. Patient apparently fell on the way back from bathroom, called for assistance on self. On EMS arrival patient is combative and altered, has a blood pressure in 50s systolic on presentation in the ER. She is not in any respiratory distress. Patient continues to say that I need to have a bowel movement immediately and has large bowel movements hard to lose followed by multiple bowel movements with blood mixed bright red. Denies any abdominal pain Timing/Duration: today, sudden Severity: moderate, severe Associated Symptoms: syncope, weakness, No abdominal pain, No shortness of breath Allergies/Adverse Reactions: amoxicillin Allergy (Verified 03/01/23 09:58) Penicillins Allergy (Verified 02/09/20 13:52) Hives Home Medications: ALPRAZolam 0.25 MG [xanAX 0.25 MG] 0.25 mg PO DAILY PRN 05/14/18 [History] Amlodipine Besylate 10 mg [Norvasc 10 MG] 10 mg PO DAILY 05/14/18 [History] Aspirin EC 81 mg [Ecotrin 81 mg] 81 mg PO DAILY 05/14/18 [History] Carvedilol [Coreg ] 6.25 mg PO BID 05/14/18 [History] Enalapril Maleate 20 mg PO BID 05/14/18 [History] Metformin HCl 500 mg [Glucophage 500 MG] 500 mg PO BID 05/14/18 [History] Pravastatin Sodium 20 mg PO DAILY 05/14/18 [History] hydroCHLOROthiazide [Hydrochlorothiazide] 12.5 mg PO DAILY 05/14/18 [History] Multivit-Min/Iron/Folic/Lutein [Centrum Silver Women Tablet] 1 tablet PO DAILY 05/15/18 [History] Mupirocin [Bactroban OINTMENT] 1 gm TOP BIDPRN PRN 05/15/18 [History] Hx Tetanus, Diphtheria Vaccination/Date Given: No Hx Influenza Vaccination/Date Given: No Hx Pneumococcal Vaccination/Date Given: No Immunizations Up to Date: Yes Travel Risk - International Travel Have you traveled outside of the country in past 3 weeks: No - Coronavirus Screening Are you exhibiting any of the following symptoms?: No Close contact with a COVID-19 positive Pt in past 14-21 Days: No - Vaccine Status Have you recieved a Covid-19 vaccination: No Central Office Associate: Unknown - Vaccination Dates Dates if Unknown: ? - Review of Systems All Other Systems: Unable due to condition - Past Medical History Pertinent Past Medical History: Yes Neurological History: No Pertinent History ENT History: No Pertinent History Cardiac History: Arrhythmia, High Cholesterol, Hypertension, Other Respiratory History: Asthma, Bronchitis Endocrine Medical History: Diabetes Type II Musculoskeletal History: Arthritis GI Medical History: Ulcer History: No Pertinent History Psycho-Social History: Depression, Anxiety Female Reproductive Disorders: No Pertinent History Other Medical History: anemic - Past Surgical History Past Surgical History: Yes Neuro Surgical History: No Pertinent History Cardiac: No Pertinent History Respiratory: No Pertinent History Gastrointestinal: No Pertinent History Genitourinary: No Pertinent History Musculoskeletal: Amputation Female Surgical History: No Pertinent History Other Surgical History: toes removed on right foot - Social History Smoking Status: Never smoker Exposure to second hand smoke: No Drug Use: none Patient Lives Alone: No ([facility]) - Nursing Vital Signs Nursing Vital Signs: Initial Vital Signs Temperature 96.6 F 03/01/23 10:11 Pulse Rate 82 03/01/23 10:11 Respiratory Rate 16 03/01/23 10:11 Blood Pressure 56/41 03/01/23 10:11 O2 Sat by Pulse Oximetry 94 L 03/01/23 10:11 Pain Scale Pain Intensity 0 - Physical Exam General Appearance: mild distress Eye Exam: PERRL/EOMI, eyes nml inspection Ears, Nose, Throat Exam: normal ENT inspection Neck Exam: normal inspection, non-tender, supple Respiratory Exam: normal breath sounds, lungs clear Cardiovascular Exam: regular rate/rhythm, normal heart sounds Gastrointestinal/Abdomen Exam: soft, normal bowel sounds, No tenderness Back Exam: normal inspection, normal range of motion Extremity Exam: normal inspection, normal range of motion Neurologic Exam: alert, No cooperative, No motor deficits Skin Exam: normal color SpO2 Interpretation: normal SpO2: 91 O2 Delivery: Room Air - Course EKG Interpreted by Me: RATE (79), Sinus Rhythm, prolonged QT interval, Left Bundle Branch Block, Non-specific ST Changes Ordered Tests: Active Orders 24 hr Category Date Time Status EKG-ER Only STAT Care 03/01/23 10:20 Active IV Insertion STAT Care 03/01/23 10:20 Active NPO (ED) STAT Care 03/01/23 10:20 Active CERVICAL SPINE WO CONTRAST [CT] Stat Exams 03/01/23 10:19 Completed CHEST 1 VIEW (PORTABLE) Stat Exams 03/01/23 10:20 Taken HEAD WITHOUT CONTRAST [CT] Stat Exams 03/01/23 10:19 Completed CBC W DIFF Stat Lab 03/01/23 10:12 Completed CMP Stat Lab 03/01/23 10:12 Completed CULTURE,URINE Stat Lab 03/01/23 11:16 Received LIPASE Stat Lab 03/01/23 10:12 Completed Lactic Acid Stat Lab 03/01/23 10:20 Completed Lactic Acid Stat Lab 03/01/23 12:42 Received MAG [MAGNESIUM] Stat Lab 03/01/23 10:12 Completed NT PRO BNPII Stat Lab 03/01/23 Completed PROCALCITONIN Stat Lab 03/01/23 Completed PROTIME WITH INR Stat Lab 03/01/23 13:26 Ordered PTT Stat Lab 03/01/23 13:26 Ordered TROPONIN Q4H Lab 03/01/23 10:12 Completed TROPONIN Q4H Lab 03/01/23 14:30 Ordered TROPONIN Q4H Lab 03/01/23 18:30 Ordered TSH, 3RD Generation Stat Lab 03/01/23 10:12 Completed UA W/RFX UR CULTURE Stat Lab 03/01/23 11:16 Received Medication Summary Generic Name Dose Route Start Last Admin Trade Name Freq PRN Reason Stop Dose Admin Sodium Chloride 1,000 mls @ 100 mls/hr 03/01/23 13:30 Sodium Chloride 0.9% 1000 Ml IV 03/31/23 13:29 .Q10H KESHAV Pantoprazole Sodium 80 mg/ 500 mls @ 50 mls/hr 03/01/23 13:30 03/01/23 13:44 Sodium Chloride IV 03/31/23 13:29 50 mls/hr .Q10H KESHAV 50 mls/hr Administration Discontinued Medications Generic Name Dose Route Start Last Admin Trade Name Hayderq PRN Reason Stop Dose Admin Sodium Chloride Confirm 03/01/23 10:04 Sodium Chloride 0.9% 1000 Ml Administered 03/01/23 10:05 Dose 1,000 mls @ ud .ROUTE .STK-MED ONE Sodium Chloride 1,000 mls @ 999 mls/hr 03/01/23 10:20 03/01/23 12:32 Sodium Chloride 0.9% 1000 Ml IV 03/01/23 11:20 Infused .Q1H1M STA Infusion Sodium Chloride 1,000 mls @ 999 mls/hr 03/01/23 12:15 03/01/23 12:17 Sodium Chloride 0.9% 1000 Ml IV 03/01/23 13:15 999 mls/hr .Q1H1M STA Administration Sodium Chloride Confirm 03/01/23 12:17 Sodium Chloride 0.9% 1000 Ml Administered 03/01/23 12:18 Dose 1,000 mls @ ud .ROUTE .STK-MED ONE Ondansetron HCl 4 mg 03/01/23 10:20 03/01/23 11:00 Ondansetron Hcl 4 Mg/2 Ml Vial IV 03/01/23 10:21 4 mg STAT ONE Administration Ondansetron HCl Confirm 03/01/23 10:59 Ondansetron Hcl 4 Mg/2 Ml Vial Administered 03/01/23 11:00 Dose 4 mg .ROUTE .STK-MED ONE Pantoprazole Sodium 40 mg 03/01/23 13:26 03/01/23 13:37 Pantoprazole 40 Mg Vial IV 03/01/23 13:27 40 mg STAT ONE Administration Pantoprazole Sodium Confirm 03/01/23 13:31 Pantoprazole 40 Mg Vial Administered 03/01/23 13:32 Dose 40 mg IV .STK-MED ONE Lab/Rad Data: Laboratory Result Diagrams 03/01/23 10:12 03/01/23 10:12 Laboratory Results 03/01/23 03/01/23 03/01/23 Range/Units Unknown 13:26 11:16 WBC (4.0-10.5) x10^3/uL RBC (4.1-5.4) x10^6/uL Hgb (12.0-16.0) g/dL Hct (35-47) % MCV (78-100) fL MCH (26-32) pg MCHC (32-36) g/dL RDW (11.5-14.0) % Plt Count (150-450) x10^3/uL MPV (7.5-11.0) fL Gran % (36.0-66.0) % Immature Gran % (Auto) (0.00-0.4) % Nucleat RBC Rel Count (0.00-0.1) % Eos # (Auto) (0-0.5) x10^3/uL Immature Gran # (Auto) (0.00-0.03) x10^3u/L Absolute Lymphs (auto) (1.0-4.6) x10^3/uL Absolute Monos (auto) (0.0-1.3) x10^3/uL Absolute Nucleated RBC (0.00-0.01) x10^3u/L Lymphocytes % (24.0-44.0) % Monocytes % (0.0-12.0) % Eosinophils % (0.00-5.0) % Basophils % (0.0-0.4) % Absolute Granulocytes (1.4-6.9) x10^3/uL Basophils # (0-0.4) x10^3/uL PT 9.8 (9.4-12.5) SECONDS INR 0.89 (0.8-3.0) APTT 22.3 L (25.1-36.5) SECONDS Sodium (137-145) mmol/L Potassium (3.5-5.1) mmol/L Chloride (98-107) mmol/L Carbon Dioxide (22-30) mmol/L Anion Gap (5-15) MEQ/L BUN (7-17) mg/dL Creatinine (0.52-1.04) mg/dL Estimated GFR ML/MIN Glucose (74-106) mg/dL Lactic Acid (0.4-2.0) Calcium (8.4-10.2) mg/dL Magnesium (1.6-2.3) mg/dL Total Bilirubin (0.2-1.3) mg/dL AST (14-36) U/L ALT (0-35) U/L Alkaline Phosphatase (38-126) U/L Troponin I (0.000-0.034) ng/mL NT-Pro-B Natriuret Pep 2020 (<300) pg/mL Serum Total Protein (6.3-8.2) g/dL Albumin (3.5-5.0) g/dL Lipase (23-300) U/L Procalcitonin 0.058 (0.030-0.080) ng/mL TSH 3rd Generation (0.47-4.68) mIU/L Urine Color Yellow (Yellow) Urine Appearance Cloudy A (Clear) Urine pH 7.0 (4.6-8.0) Ur Specific [place] <=1.005 (1.005-1.030) Urine Protein 30 (Negative) Urine Glucose (UA) Negative (Negative) mg/dL Urine Ketones Negative (Negative) Urine Blood Trace (Negative) Urine Nitrite Negative (Negative) Urine Bilirubin Negative (Negative) Urine Urobilinogen 0.2 (0.2) mg/dL Ur Leukocyte Esterase Large A (Negative) U Hyaline Cast (Auto) NONE SEEN (0-2) /LPF Urine Microscopic RBC 0-2 (0-5) /HPF Urine Microscopic WBC >100 A (0-5) /HPF Ur Epithelial Cells None Seen (None Seen) /HPF Urine Bacteria None Seen (None Seen) /HPF Urine Culture Reflexed ORDERED SEPARATELY (NO) 03/01/23 03/01/23 03/01/23 Range/Units 10:20 10:12 10:12 WBC (4.0-10.5) x10^3/uL RBC (4.1-5.4) x10^6/uL Hgb (12.0-16.0) g/dL Hct (35-47) % MCV (78-100) fL MCH (26-32) pg MCHC (32-36) g/dL RDW (11.5-14.0) % Plt Count (150-450) x10^3/uL MPV (7.5-11.0) fL Gran % (36.0-66.0) % Immature Gran % (Auto) (0.00-0.4) % Nucleat RBC Rel Count (0.00-0.1) % Eos # (Auto) (0-0.5) x10^3/uL Immature Gran # (Auto) (0.00-0.03) x10^3u/L Absolute Lymphs (auto) (1.0-4.6) x10^3/uL Absolute Monos (auto) (0.0-1.3) x10^3/uL Absolute Nucleated RBC (0.00-0.01) x10^3u/L Lymphocytes % (24.0-44.0) % Monocytes % (0.0-12.0) % Eosinophils % (0.00-5.0) % Basophils % (0.0-0.4) % Absolute Granulocytes (1.4-6.9) x10^3/uL Basophils # (0-0.4) x10^3/uL PT (9.4-12.5) SECONDS INR (0.8-3.0) APTT (25.1-36.5) SECONDS Sodium (137-145) mmol/L Potassium (3.5-5.1) mmol/L Chloride (98-107) mmol/L Carbon Dioxide (22-30) mmol/L Anion Gap (5-15) MEQ/L BUN (7-17) mg/dL Creatinine (0.52-1.04) mg/dL Estimated GFR ML/MIN Glucose (74-106) mg/dL Lactic Acid 4.0 H (0.4-2.0) Calcium (8.4-10.2) mg/dL Magnesium (1.6-2.3) mg/dL Total Bilirubin (0.2-1.3) mg/dL AST (14-36) U/L ALT (0-35) U/L Alkaline Phosphatase (38-126) U/L Troponin I < 0.012 (0.000-0.034) ng/mL NT-Pro-B Natriuret Pep (<300) pg/mL Serum Total Protein (6.3-8.2) g/dL Albumin (3.5-5.0) g/dL Lipase (23-300) U/L Procalcitonin (0.030-0.080) ng/mL TSH 3rd Generation 3.810 (0.47-4.68) mIU/L Urine Color (Yellow) Urine Appearance (Clear) Urine pH (4.6-8.0) Ur Specific [place] (1.005-1.030) Urine Protein (Negative) Urine Glucose (UA) (Negative) mg/dL Urine Ketones (Negative) Urine Blood (Negative) Urine Nitrite (Negative) Urine Bilirubin (Negative) Urine Urobilinogen (0.2) mg/dL Ur Leukocyte Esterase (Negative) U Hyaline Cast (Auto) (0-2) /LPF Urine Microscopic RBC (0-5) /HPF Urine Microscopic WBC (0-5) /HPF Ur Epithelial Cells (None Seen) /HPF Urine Bacteria (None Seen) /HPF Urine Culture Reflexed (NO) 03/01/23 03/01/23 03/01/23 Range/Units 10:12 10:12 10:12 WBC 6.5 (4.0-10.5) x10^3/uL RBC 4.19 (4.1-5.4) x10^6/uL Hgb 11.7 L (12.0-16.0) g/dL Hct 35.8 (35-47) % MCV 85.4 (78-100) fL MCH 27.9 (26-32) pg MCHC 32.7 (32-36) g/dL RDW 12.2 (11.5-14.0) % Plt Count 342 (150-450) x10^3/uL MPV 9.7 (7.5-11.0) fL Gran % 68.4 H (36.0-66.0) % Immature Gran % (Auto) 0.6 H (0.00-0.4) % Nucleat RBC Rel Count 0.0 (0.00-0.1) % Eos # (Auto) 0.07 (0-0.5) x10^3/uL Immature Gran # (Auto) 0.04 H (0.00-0.03) x10^3u/L Absolute Lymphs (auto) 1.53 (1.0-4.6) x10^3/uL Absolute Monos (auto) 0.40 (0.0-1.3) x10^3/uL Absolute Nucleated RBC 0.00 (0.00-0.01) x10^3u/L Lymphocytes % 23.5 L (24.0-44.0) % Monocytes % 6.1 (0.0-12.0) % Eosinophils % 1.1 (0.00-5.0) % Basophils % 0.3 (0.0-0.4) % Absolute Granulocytes 4.45 (1.4-6.9) x10^3/uL Basophils # 0.02 (0-0.4) x10^3/uL PT (9.4-12.5) SECONDS INR (0.8-3.0) APTT (25.1-36.5) SECONDS Sodium 126 L (137-145) mmol/L Potassium 4.9 (3.5-5.1) mmol/L Chloride 90 L (98-107) mmol/L Carbon Dioxide 22 (22-30) mmol/L Anion Gap 19.0 H (5-15) MEQ/L BUN 20 H (7-17) mg/dL Creatinine 1.34 H (0.52-1.04) mg/dL Estimated GFR 41.8 ML/MIN Glucose 184 H (74-106) mg/dL Lactic Acid (0.4-2.0) Calcium 9.3 (8.4-10.2) mg/dL Magnesium 1.9 (1.6-2.3) mg/dL Total Bilirubin 0.40 (0.2-1.3) mg/dL AST 27 (14-36) U/L ALT 19 (0-35) U/L Alkaline Phosphatase 172 H (38-126) U/L Troponin I (0.000-0.034) ng/mL NT-Pro-B Natriuret Pep (<300) pg/mL Serum Total Protein 8.3 H (6.3-8.2) g/dL Albumin 4.0 (3.5-5.0) g/dL Lipase 196 (23-300) U/L Procalcitonin (0.030-0.080) ng/mL TSH 3rd Generation (0.47-4.68) mIU/L Urine Color (Yellow) Urine Appearance (Clear) Urine pH (4.6-8.0) Ur Specific [place] (1.005-1.030) Urine Protein (Negative) Urine Glucose (UA) (Negative) mg/dL Urine Ketones (Negative) Urine Blood (Negative) Urine Nitrite (Negative) Urine Bilirubin (Negative) Urine Urobilinogen (0.2) mg/dL Ur Leukocyte Esterase (Negative) U Hyaline Cast (Auto) (0-2) /LPF Urine Microscopic RBC (0-5) /HPF Urine Microscopic WBC (0-5) /HPF Ur Epithelial Cells (None Seen) /HPF Urine Bacteria (None Seen) /HPF Urine Culture Reflexed (NO) - Progress Progress: improved, re-examined Progress Note: 03/01/23 13:55 67 years old female with history of hypertension, hyperlipidemia, diabetes mellitus resident of assisted living is brought in the ER after she collapsed on the way back from bathroom with unknown injuries, patient was hypotensive and combative on presentation with systolic blood pressure in 50s. She is moving all 4 extremities, obeying some commands but confused. She is given fluid bolus, on reevaluation her blood pressure improved, patient wanted to have a bowel movement badly on presentation and has big BM followed by liquid mixed with bright red blood. She has no hemorrhoids on exam. Blood pressure improved to 110s on reevaluation, work-up showed normal white count and hemoglobin of 11.7 which is around her baseline. Chemistry shows sodium of 126 and BUN of 20 and creatinine of 1.34. Patient has a lactate of 4.0. She received sepsis bolus of fluid and a dose of antibiotic for possible colitis/diverticulitis. I have obtained CT head and cervical spine which are negative for any acute findings. Patient improved/turnaround pretty good and is back to her baseline and reports that she was not able to sleep for the last few nights and earlier when she used the bathroom she was half asleep and did not fall but slowly went down as she was feeling weak all over. She is not on any blood thinner, started on Protonix. I believe patient needs GI services for further evaluation to figure out the source of bleeding. On repeated evaluation abdominal exam remains soft nontender. I have discussed with Dr. Bello tamayo, reviewed history, work-up, agreed with transfer. I have discussed lab work, imaging findings, diagnosis, current management and plan of transfer with patient in detail who understands and agrees with it. Discussed with Dr.: Other (Dr. Bello tamayo ER at 1350) Counseled pt/family regarding: lab results, diagnosis, rad results Medical Desision Making - Independent Historian Additional History obtained from: EMS - Discussion of managment Care discussed with:: on-call "doc" (Dr. Bello [facility]) Reviewed:: Test results, Need for additional workup Agreed on:: Treatment plan, need for follow-up Will see patient: in ED - Diagnostic Testing Diagnostic test were ordered, analyzed, and reviewed by me: Yes Radiological Interpretation: Interpreted by me, Reviewed by me, Teleradiologist Report - Risk of complications The pt has a high risk of morbidity or mortality based on: Drug therapy requiring intensive monitoring for toxicity, Decision regarding hospitilization or escalation of hosp level of care - Departure Departure Disposition: Transfer Clinical Impression: Lower GI bleed, Syncope and collapse, Hypotension, Altered mental status Condition: Stable Critical Care Time: Yes Critical Care Time(excluding separately billable procedures): Critical 30-74 mins Referrals: CALDERON MORENO MD [Primary Care Provider] - Follow up/PCP as directed
[2023-03-01 14:01] VITALS: O2SAT 91
[2023-03-01 14:09] VITALS: BP 108/64; PULSE 80
--- NOTE | 2023-03-01 19:17 | XRAY ---
Indication: Altered mental status. Status post fall. Comparison: December 24, 2022 Portable chest remains inflated and clear. Heart not enlarged. Bony thorax intact again with osteopenia and degenerative changes. No new/acute findings.
== END 2023-03-01 14:50 | disposition short-term general hospital (02) ==
LOC: ED 09:55
DX: R55 Syncope and collapse (principal); I10 Essential (primary) hypertension; E78.5 Hyperlipidemia, unspecified; E11.9 Type 2 diabetes mellitus without complications; I95.9 Hypotension, unspecified; K92.1 Melena; R41.82 Altered mental status, unspecified; Z79.899 Other long term (current) drug therapy; Z20.828 Contact with and (suspected) exposure to other viral communicable diseases
CPT/HCPCS: 36000; 36415; 51702; 70450; 71045; 72125; 80053; 81001; 83605; 83690; 83735; 83880; 84145; 84443; 84484; 85025; 85610; 85730; 87077; 87086; 87186; 93005; 96360; 96361; 96365; 96374; 96375; 99285; 99291; J2405